=== PATIENT | male | born 1945 | race Asian ===

== ENCOUNTER 2024-08-21 12:14 | Emergency (ER) | payer MEDICARE, SELFPAY ==
[2024-08-21] VITALS (14 sets, daily range): BP systolic 97–139; BP diastolic 54–79; PULSE 84–104; RESP 18–97; TEMP 37.1–39.5; O2SAT 6–932; BMI 24.7
--- NOTE | 2024-08-21 | XR_ITS ---
MRI abdomen, without contrast. MRCP Date and time of exam: August 21, 2024 1746 hrs. Indications: Elevated liver function tests including total bilirubin on laboratory examination this week, abnormally thickened gallbladder wall and enlarged common bile duct on gallbladder sonogram today Technique: Multiple axial and coronal images of the abdomen have been obtained with the Siemens 1.5T MRI scanner. Images obtained included T1 weighted transverse images, T2-weighted transverse images, T2-weighted transverse images fat-suppressed, T2 weighted haste fat suppressed transverse images, T1 weighted images, in and out of phase images, T2-weighted coronal images, breath hold, T2 weighted haze coronal images as well as T2 weighted coronal thick slab images, MRCP. Findings: 8 cm liver cyst Gallbladder is contracted, gallbladder wall is thickened and edematous Common hepatic duct common bile duct enlarged 9 mm Abrupt termination of the distal common bile duct without definite common bile duct stones No definite peripancreatic edema Mild perinephric stranding Spleen is not enlarged Aorta normal size Impression: Acute acalculous cholecystitis Enlarged common hepatic common bile duct with fairly abrupt termination of the common bile duct, recommend ERCP follow-up to exclude malignant stricture in the distal common bile duct
--- NOTE | 2024-08-21 12:17 | XR_ITS ---
Examination: AP chest single view Technique one AP portable sitting chest single view Exam date and time: August 21, 2024 1251 hours INDICATIONS: Sepsis protocol FINDINGS: Early right middle lobe bibasilar pneumonia Mild enlargement cardiac contour Mild vascular congestion Prominent osteopenia IMPRESSION: Early right middle lobe and bibasilar pneumonia
--- NOTE | 2024-08-21 12:17 | EKG_ITS ---
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
--- NOTE | 2024-08-21 12:18 | PD.EDADULT ---
ED General RME/HPI General Chief complaint: Altered Mental Status Stated complaint: AMS Time Seen by Provider: 08/21/24 12:17 Arrival date/time: 08/21/24 12:14 CC: Altered mental status warm to touch EMS report tachycardic. Patient's family member report to EMS the patient complaining of abdominal pain and slept on the floor last night woke up this morning found him altered his baseline is normal mentation. Patient is awake answering yes/no questions stating he is complaining of abdominal pain. at bedside at 1258 states the patient been complaining of abdominal pain with vomiting x 1 yesterday afternoon, she states typically he is active energetic and awake. states that she let him sleep on the floor last night secondary to chronic back pain. Related Data Home Medications ?Medication ?Instructions ?Recorded ?Confirmed aspirin 81 mg tablet,delayed 81 mg PO BID 03/23/20 08/21/24 release (Ecotrin Low Strength) alprazolam 0.5 mg tablet 0.25 mg PO HS PRN Anxiety 10/31/22 08/21/24 tamsulosin 0.4 mg capsule 0.4 mg PO QDAY 10/31/22 08/21/24 amlodipine 5 mg tablet 5 mg PO DAILY 11/03/22 08/21/24 docusate sodium 250 mg capsule 250 mg PO BID 11/03/22 08/21/24 simvastatin 10 mg tablet 10 mg PO QPM 11/03/22 08/21/24 fluticasone fur. 200 mcg-umeclid 1 inh inhalation DAILY 08/21/24 08/21/24 62.5 mcg-vilant 25 mcg inhalat.powder (Trelegy Ellipta) montelukast 10 mg tablet 10 mg PO DAILY 08/21/24 08/21/24 Previous Rx's ?Medication ?Instructions ?Recorded tiotropium bromide 18 mcg capsule 1 cap inhalation QDAY 30 days #2 11/03/22 with inhalation device puffs Allergies Allergy/AdvReac Type Severity Reaction Status Date / Time No Known Allergies Allergy Verified 08/21/24 14:20 Review of Systems Review of Systems Narrative Review of Systems: GEN: No fever, no chills, no weight loss EYES: No discharge, no visual changes, no pain HEENT: No ear pain, no congestion, no sore throat PULM: No shortness of breath, no cough, no congestion CV: No chest pain, no dyspnea on exertion, no palpitations GI: No nausea, no vomiting, no diarrhea, + pain, no constipation : No frequency, no urgency, no dysuria MUSC/SKEL: No joint pain, no back pain SKIN: No rash PSYCH: No hallucinations, no depression HEME/LYMPH: No easy bleeding or bruising tendencies NEURO: No weakness, no headache ED Exam Narrative Physical exam: [General: Appears not in any acute distress Head normocephalic HEENT: Eyes pupils are PERRLA EOMs are intact mouth dry pink membranes swallow symmetrical phonation is normal. Nose no rhinorrhea although subsystems of HEENT are within acceptable limits Neck is supple nontender no JVD Chest equal chest rise nontender to palpation Respiratory: Clear to auscultation no wheezes crackles or rubs CV: Rate rhythm is regular no murmurs rubs or clicks Abdomen is distended secondary to body habitus soft, tender throughout, no masses positive bowel sounds all 4 quadrants Back: No CVA tenderness no spinous process tenderness from cervical spine thoracic and lumbar spine Skin: Intact no petechiae rash induration ulceration or crepitus Extremities: Moving all extremity against resistance cap refill less than 2 seconds neurosensory intact Neuro: Awake alert oriented x1, person and place, Glascow coma 13 no focal deficits] Course Course Course Narrative: Patient's case presented to [facility] perlita Mcnair, 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 Quality Measures VTE prophylaxis Orders Category Date Time Status Bedside COVID-19 Antigen Test NOW Care 08/21/24 12:17 Completed Bedside Influenza A&B Antigen Test NOW Care 08/21/24 12:18 Completed Refractory Tile Helper STAT Care 08/21/24 12:17 Completed Continuous Pulse Oximetry STAT Care 08/21/24 12:17 Completed EKG (ED ONLY) *Do not use* NOW Care 08/21/24 12:17 Completed In and Out Catheter X1PRN Care 08/21/24 12:17 Completed Insert IV NOW Care 08/21/24 12:17 Completed MRI Screening NOW Care 08/21/24 17:31 Completed NPO STAT Care 08/21/24 12:17 Completed Strict Intake and Output Routine Care 08/21/24 12:[address] abdomen pelvis wo con Stat Exams 08/21/24 12:58 Completed EKG (ED Only) Stat Exams 08/21/24 12:17 Draft MR MRCP Stat Exams 08/21/24 Completed US gall bladder Stat Exams 08/21/24 13:31 Completed XR chest 1V SEPSIS PROTOCOL Stat Exams 08/21/24 12:17 Completed B-Type Natriuretic Peptide Stat Lab 08/21/24 12:32 Completed Blood Culture (Lab) Stat Lab 08/21/24 12:25 Received CBC Stat Lab 08/21/24 12:32 Completed Comprehensive Metabolic Panel Stat Lab 08/21/24 12:32 Completed Creatine Kinase Stat Lab 08/21/24 12:32 Completed LDH (Lactate Dehydrogenase) Stat Lab 08/21/24 12:32 Completed Lactate (Lactic Acid) Stat Lab 08/21/24 12:32 Completed Lactic Acid, 3 HR Stat Lab 08/21/24 16:03 Completed Lipase Stat Lab 08/21/24 12:32 Completed Magnesium Stat Lab 08/21/24 12:32 Completed Partial Thromboplastin Time Stat Lab 08/21/24 12:32 Completed Phosphorous Stat Lab 08/21/24 12:32 Completed Procalcitonin Stat Lab 08/21/24 12:32 Completed Prothrombin Time with INR Stat Lab 08/21/24 12:32 Completed Troponin I Stat Lab 08/21/24 12:32 Completed Urinalysis Stat Lab 08/21/24 13:17 Completed Urine Culture Stat Lab 08/21/24 14:04 Ordered Acetaminophen Supp [Tylenol Supp] Med 08/21/24 12:21 Discontinued 650 mg OK X1 ONE Sodium Chloride 0.9% 1000 ml [Ns] 1,000 ml Med 08/21/24 16:48 Discontinued IV 125 mls/hr Sodium Chloride 0.9% 1000 ml [Ns] 1,000 ml Med 08/21/24 12:18 Discontinued IV 999 mls/hr Sodium Chloride 0.9% 1000 ml [Ns] 1,000 ml Med 08/21/24 13:23 Discontinued IV 999 mls/hr Sodium Chloride 0.9% 1000 ml [Ns] 1,000 ml Med 08/21/24 16:46 Discontinued IV 999 mls/hr Sodium Chloride 0.9% 1000 ml [Ns] 500 ml Med 08/21/24 16:48 Discontinued IV 999 mls/hr cefTRIAXone/D5w 1gm IV premix [Rocephin/D5w 1gm IV Med 08/21/24 13:22 Discontinued premix] 50 ml IV X1 metroNIDAZOLE/NS 500 MG IVPB [Flagyl 500 mg IV] Med 08/21/24 20:44 Discontinued 500 mg in 100 ml IV X1 Oxygen Delivery NOW RT 08/21/24 12:17 Completed Vital Signs Vital signs: Vital Signs Temperature 102.7 F H 08/21/24 12:22 Pulse Rate 104 H 08/21/24 12:22 Respiratory Rate 20 08/21/24 12:22 Blood Pressure 119/67 08/21/24 12:22 Pulse Oximetry (%) 92 L 08/21/24 12:22 Oxygen Delivery Method Room Air 08/21/24 12:[address] [facility] Patient data External records reviewed:: [facility] previous records and EMS form Clinical information provided by:: patient, EMS and spouse Social determinants that could affect healthcare access:: none Patient has the following chronic illnesses:: COPD acid reflux hypertension hyperlipidemia How is presenting disease/condition affected by chronic disease/condition?: uneffected by Evaluation data The following diagnostics were reviewed and interpreted by me:: lab results, radiology exam(s) and EKG tracing(s) Lab and/or radiology exams considered but not ordered:: EKG performed at 1349 shows a ventricular rate of 100 OK interval 155 QRS 101 QTc 340 sinus tachycardia left axis deviation. When compared to an old EKG of November 2022 there are no significant changes. CBC shows leukocytosis no anemia thrombocytopenia CMP shows the patient has a sodium 136 potassium 3.9 chloride of 100 CO2 of 2 5.9, BUN of 16 creatinine of 1.4 glucose of 132 Lactic of 3.2 Phos of 1.7, mag 1.5 T. bili of 4.9 AST of 349 ALT of 341 alk phos of 159 LDH of 435 BNP of 172 Troponin 0.023 Interpretation Summary: Acute cholangitis Medications Medications considered but not ordered:: None Medication administrations:: Medication Administration History Discontinued Medications Acetaminophen (Acetaminophen Supp 650 Mg Supp) 650 mg OK X1 ONE Stop: 08/21/24 12:22 Last Admin: 08/21/24 13:16 Dose: 650 mg Documented By: AM Sodium Chloride (Ns) 1,000 mls @ 999 mls/hr IV .Q1H1M ONE Stop: 08/21/24 13:18 Last Infusion: 08/21/24 15:01 Dose: Infused Documented By: Admin: 08/21/24 13:10 Dose: 999 mls/hr Documented By: AM Ceftriaxone Sodium/Dextrose (Rocephin/D5w 1gm Iv Premix) 50 mls @ 100 mls/hr IV X1 ONE Stop: 08/21/24 13:51 Last Infusion: 08/21/24 14:23 Dose: Infused Documented By: Admin: 08/21/24 13:45 Dose: 100 mls/hr Documented By: AM Sodium Chloride (Ns) 1,000 mls @ 999 mls/hr IV .Q1H1M ONE Stop: 08/21/24 14:23 Last Infusion: 08/21/24 15:01 Dose: Infused Documented By: Admin: 08/21/24 13:45 Dose: 999 mls/hr Documented By: AM Sodium Chloride (Ns) 1,000 mls @ 999 mls/hr IV .Q1H1M ONE Stop: 08/21/24 17:46 Sodium Chloride (Ns) 1,000 mls @ 125 mls/hr IV .Q8H LINDA Stop: 08/22/24 16:47 Last Admin: 08/21/24 16:50 Dose: 125 mls/hr Documented By: AM Sodium Chloride (Ns) 500 mls @ 999 mls/hr IV .Q31M ONE Stop: 08/21/24 17:18 Last Infusion: 08/21/24 17:21 Dose: Infused Documented By: Admin: 08/21/24 16:50 Dose: 999 mls/hr Documented By: AM Metronidazole (Flagyl 500 Mg Iv) 500 mg in 100 mls @ 100 mls/hr IV X1 ONE Stop: 08/21/24 21:43 Last Admin: 08/21/24 21:02 Dose: 100 mls/hr Documented By: None Consultations Consultation(s) initiated? (list below): No Diagnosis Differential Diagnosis ED Complaint MDM: Cholangitis cholelithiasis cholecystitis Most likely diagnosis given after review of the tests above:: Cholangitis Admission Indicated Admission indicated?: indicated Explain why admission is indicated or not indicated:: Transfer Admission Request Was there a request for admission?: No Disposition Plan Disposition Plan: Transfer Medical Decision Making Differential Diagnosis Differential Diagnosis: Cholangitis cholelithiasis cholecystitis Lab Data 08/21/24 12:32 11/26/24 12:32 Labs: Lab Results 08/21/24 08/21/24 08/21/24 Range/Units 12:32 13:17 16:03 WBC 13.3 H (3.8-10.6) Thou/mm3 RBC 5.10 (4.50-5.90) Miln/mm3 Hgb 15.8 (13.5-16.0) g/dL Hct 46.0 (41.0-53.0) % MCV 90 (80-100) fL MCH 31.0 (25.0-35.0) pg MCHC 34.3 (31.0-37.0) g/dl RDW Std Deviation 45.3 H (35.1-43.9) fL Plt Count 128 L (140-440) Thou/mm3 Neut % (Auto) 89 H (37-80) % Lymph % (Auto) 3 L (10-50) % [place] % (Auto) 4 (0-12) % Eos % (Auto) 0 (0-10) % Baso % (Auto) 0 (0-2.5) % Neut # (Auto) 11.9 H (1.8-7.7) Thou/mm3 Lymph # (Auto) 0.4 L (1.0-4.8) Thou/mm3 [place] # (Auto) 0.6 (0.0-0.8) Thou/mm3 Eos # (Auto) 0.0 (0.0-0.5) Thou/mm3 Baso # (Auto) 0.0 (0.0-0.2) Thou/mm3 Immature Gran # (Auto) 0.42 H (0.00-0.00) Thou/mm3 Absolute Nucleated RBC 0.02 H (0.00-0.00) Thou/mm3 Immature Gran % 3 H (0-0) % Nucleated RBC % 0 (0) /100 WBC PT 12.3 H (9.0-12.2) Seconds INR 1.1 (0.9-1.3) APTT 28.4 (22.0-36.0) Seconds Sodium 136 (136-145) mMol/L Potassium 3.9 (3.4-5.1) mMol/L Chloride 100 (98-107) mMol/L Carbon Dioxide 25.9 (20.0-31.0) mMol/L Anion Gap 10 (7-16) BUN 16 (9-23) mg/dL Creatinine 1.4 H (0.6-1.3) mg/dL Estim Creat Clear Calc 35.2 L (>60) mL/min eGFR 51 L (60 - ) See Note BUN/Creatinine Ratio 11 L (12-20) Ratio Glucose 132 H (74-106) mg/dL Calculated Osmolality 275 (275-295) Lactic Acid 3.2 H 2.0 (0.4-2.0) mMol/L Calcium 9.3 (8.3-10.6) mg/dL Corrected Calcium 9.3 (8.5-10.1) mg/dL Phosphorus 1.7 L (2.4-5.1) mg/dL Magnesium 1.5 L (1.6-2.6) mg/dL Total Bilirubin 4.9 H (0.3-1.2) mg/dL AST 349 H (0-34) U/L ALT 341 H (10-49) U/L Alkaline Phosphatase 159 H (46-116) U/L Lactate Dehydrogenase 435 H (120-246) U/L Total Creatine Kinase 83 (34-171) U/L Troponin I 0.023 (0.0-0.045) ng/mL B-Natriuretic Peptide 172 H (0-100) pg/mL Total Protein 7.0 (5.7-8.2) gm/dL Albumin 4.1 (3.4-4.8) gm/dL Globulin 2.9 (2.3-3.5) gm/dL Albumin/Globulin Ratio 1.4 (1.2-2.2) Lipase 26 (12-53) U/L Procalcitonin 45.32 H (0.0-0.49) ng/ml Ur Collection Type Clean Catch Urine Color Drk-Yellow A (Lt Yel-Yel) Urine Clarity Clear (Clear/Hazy) Urine pH 8.0 H (5.0-7.0) Ur Specific [place] 1.017 (1.001-1.035) Urine Protein 1+ A (Neg - Trace) Urine Glucose (UA) Negative (Negative) Urine Ketones Negative (Negative) Urine Blood 1+ A (Negative) Urine Nitrite Negative (Negative) Urine Bilirubin 1+ A (Negative) Urine Urobilinogen (Auto) 2.0 (0.0-1.0) mg/dL Ur Leukocyte Esterase Negative (Negative) Urine RBC 14 H (0-3) /hpf Urine WBC 7 H (0-5) /hpf Ur Squamous Epith Cells < 1 (0-5) /hpf Urine Bacteria None (None) Hyaline Casts < 1 (0-1) /hpf Discharge Plan Plan Patient Disposition: [facility] Facility Pt Being Transferred to: [facility] Service Needed for Transfer: Gastroenterology Patient condition on transfer: Stable Prescriptions/Referrals Prescriptions/Med Rec: No Action aspirin [Ecotrin Low Strength] 81 mg Tablet,Delayed Release (Dr/Ec) 81 mg PO BID alprazolam 0.5 mg tablet 0.25 mg PO HS PRN (Reason: Anxiety) Patient Comments: TAKE 1/2 TABLET BY MOUTH AT NIGHT NEEDED FOR SEVERE ANXIETY MAX DOSE ONE TABLET/DAILY. tamsulosin 0.4 mg capsule 0.4 mg PO QDAY Patient Comments: TAKE 1 CAPSULE BY ORAL ROUTE ONCE DAILY FOR ENLARGED PROSTATE tiotropium bromide 18 mcg capsule, w/inhalation device 1 cap inhalation QDAY 30 Days Qty: 2 1RF docusate sodium 250 mg capsule 250 mg PO BID Patient Comments: TAKE 1 CAPSULE BY MOUTH TWICE A DAY FOR SLOW TRANSIT CONSTIPATION simvastatin 10 mg Tablet 10 mg PO QPM amlodipine 5 mg Tablet 5 mg PO DAILY montelukast 10 mg tablet 10 mg PO DAILY Patient Comments: TAKE 1 TABLET (10 MG) BY ORAL ROUTE ONCE DAILY IN THE EVENING FOR ASTHMA/PERSISTENT ALLERGIES Trelegy Ellipta 200-62.5-25 mcg blister with device 1 inh INHALATION DAILY Patient Comments: PLEASE SEE ATTACHED FOR DETAILED DIRECTIONS Referrals: Javier Pete MD [Primary Care Provider] - In 1 week Problem List Clinical Impression: Acute cholangitis Patient/Caregiver Discharge Instructions Print Language: [place] Stand Alone Forms: Angelia Award Info., Patient Portal Info Letter PA/COLLEGE TUTOR Supervising Physician PA/COLLEGE TUTOR Supervising Physician: Mike Cr ENP
[2024-08-21 12:43] LABS: Lactate (Lactic Acid) 3.2 mMol/L (0.4-2.0)
[2024-08-21 12:45] LABS: Basophils % (Auto) 0 % (0-2.5); Eosinophils % (Auto) 0 % (0-10); Hemoglobin 15.8 g/dL (13.5-16.0); Immature Granulocytes % (Auto) 3 % (0-0); Immature Granulocytes Auto 0.42 Thou/mm3 (0.00-0.00); Lymphocytes # (Auto) 0.4 Thou/mm3 (1.0-4.8); Lymphocytes % (Auto) 3 % (10-50); Mean Corpuscular HGB Conc 34.3 g/dl (31.0-37.0); Mean Corpuscular Volume 90 fL (80-100); Monocytes # (Auto) 0.6 Thou/mm3 (0.0-0.8); Monocytes % (Auto) 4 % (0-12); Neutrophils # (Auto) 11.9 Thou/mm3 (1.8-7.7); Neutrophils % (Auto) 89 % (37-80); Nucleated Red Blood Cell # 0.02 Thou/mm3 (0.00-0.00); Nucleated Red Blood Cell % 0 /100 WBC (0); Platelet Count 128 Thou/mm3 (140-440); RDW Standard Deviation 45.3 fL (35.1-43.9); White Blood Count 13.3 Thou/mm3 (3.8-10.6)
--- NOTE | 2024-08-21 12:58 | XR_ITS ---
Examination: CT abdomen and pelvis without contrast. Coronal 3-D reconstructions. Sagittal 2-D reconstructions. Date and time of exam:August 21, 2024 at 1319 hours Comparison October 31, 2022 INDICATIONS: Generalized abdominal pain and fevers today CTDI: vol (mGy): 9.26 DLP: (mGycm): 565 Technique: Axial images of the abdomen have been obtained, 3 mm slice thickness Intravenous contrast material has not been administered. Low dose protocols were performed. One or more of the following dose reduction techniques were used; automated exposure control, adjustment of the mA and/or KV according to patient size, use of iterative reconstruction technique. Findings: Again noted large right lobe liver cyst No biliary tract dilatation Gallbladder wall appears thickened Spleen is not enlarged No pancreatic mass No hydronephrosis or ureteral calculi Aorta normal size No pericecal inflammatory change 25 mm fat-containing umbilical hernia Minute calcification along the urinary bladder on the right side image 178 AP prostate dimension 3.7 cm Fat-containing inguinal hernias Moderate osteopenia Minimal urinary bladder wall thickening anteriorly up to 3 mm IMPRESSION: Recommend hepatobiliary sonography to exclude acute cholecystitis 25 mm fat-containing umbilical hernia No abdominal or pelvic abscess Minimal urinary bladder wall thickening, consider cystitis
[2024-08-21] MEDS: SODIUM CHLORIDE 0.9% 1000 ML 1,000 ML 999 ML IV ×2 (13:10→13:45)
[2024-08-21 13:14] LABS: B-Type Natriuretic Peptide 172 pg/mL (0-100)
[2024-08-21] MEDS: ACETAMINOPHEN SUPP 650 MG SUPP PR (13:16)
[2024-08-21 13:23] LABS: Alanine Aminotransferase 341 U/L (10-49); Albumin, Serum 4.1 gm/dL (3.4-4.8); Albumin/Globulin Ratio 1.4 (1.2-2.2); Alkaline Phosphatase 159 U/L (46-116); Anion Gap 10 (7-16); Aspartate Amino Transferase 349 U/L (0-34); BUN/Creatinine Ratio 11 Ratio (12-20); Bilirubin,Total 4.9 mg/dL (0.3-1.2); Blood Urea Nitrogen 16 mg/dL (9-23); Calcium 9.3 mg/dL (8.3-10.6); Calcium (Corrected) 9.3 mg/dL (8.5-10.1); Carbon Dioxide 25.9 mMol/L (20.0-31.0); Chloride 100 mMol/L (98-107); Creatine Kinase 83 U/L (34-171); Creatinine (Component) 1.4 mg/dL (0.6-1.3); Estimated Creatinine Clearance 35.2 mL/min (>60); Globulin 2.9 gm/dL (2.3-3.5); Glucose 132 mg/dL (74-106); LDH (Lactate Dehydrogenase) 435 U/L (120-246); Lipase 26 U/L (12-53); Magnesium 1.5 mg/dL (1.6-2.6); Osmolality,Calculated 275 (275-295); Phosphorous 1.7 mg/dL (2.4-5.1); Potassium 3.9 mMol/L (3.4-5.1); Procalcitonin 45.32 ng/ml (0.0-0.49); Sodium 136 mMol/L (136-145); Troponin I 0.023 ng/mL (0.0-0.045); eGFR 51 See Note
--- NOTE | 2024-08-21 13:31 | XR_ITS ---
Examination: Abdomen sonogram, Limited Date and time of exam: August 21, 2024 1520 hours INDICATIONS: Elevated liver function tests on laboratory examination today, CT abdomen study today thickened gallbladder wall Technique: Real-time martinez scale transabdominal sonographic images of the upper abdomen obtained. Findings: Negative for gallstones Gallbladder wall is thickened 0.8 cm Common bile duct 0.9 cm Pancreatic head 3.0 cm Liver 16.6 cm with 8 cm right lobe liver cyst Normal hepatopedal portal venous flow Patent IVC IMPRESSION: Findings most consistent with acute cholecystitis, consider HIDA scan or MRCP follow-up for confirmation
[2024-08-21 13:35] LABS: Collection Type, Urine Clean Catch
[2024-08-21 13:40] LABS: Bilirubin,Urine 1+ (Negative); Blood,Urine 1+ (Negative); Clarity,Urine Clear (Clear/Hazy); Color,Urine Drk-Yellow (Lt Yel-Yel); Glucose, Urine Negative (Negative); Hyaline Casts,Urine < 1 /hpf (0-1); Ketones,Urine Negative (Negative); Leukocyte Esterase,Urine Negative (Negative); Nitrite,Urine Negative (Negative); Protein,Urine 1+ (Neg - Trace); RBC,Urine 14 /hpf (0-3); Specific Gravity,Urine 1.017 (1.001-1.035); Squamous Epithelial Cell,Urine < 1 /hpf (0-5); WBC,Urine 7 /hpf (0-5)
[2024-08-21] MEDS: cefTRIAXone/D5w 1gm IV premix 50 ML IV (13:45)
[2024-08-21 13:47] LABS: INR 1.1 (0.9-1.3); Partial Thromboplastin Time 28.4 Seconds (22.0-36.0); Prothrombin Time 12.3 Seconds (9.0-12.2)
[2024-08-21 15:38] LABS: Reflex Lactate? Y
[2024-08-21] MEDS: SODIUM CHLORIDE 0.9% 1000 ML 1,000 ML 125 ML IV (16:50)
[2024-08-21] MEDS: SODIUM CHLORIDE 0.9% 1000 ML 500 ML 999 ML IV (16:50)
--- NOTE | 2024-08-21 18:04 | PC.NURSE ---
Pt off to MRI
--- NOTE | 2024-08-21 20:38 | PC.NURSE ---
2037 tang rodas speaking with [facility] doctor at this time.
--- NOTE | 2024-08-21 20:43 | PC.NURSE ---
PT IS ACCEPTED TO [facility] BY DR. BARBER. THIS IS A ER:ER TRANSFER AND NUMBER FOR REPORT IS [phone].
[2024-08-21] MEDS: metroNIDAZOLE/NS 500 MG IVPB 500 MG/100 ML BAG 100 MG IV (21:02)
== END 2024-08-21 22:05 | disposition short-term general hospital (02) ==
PROVIDERS: Registered Nurse General Practice; Emergency Provider Emergency Medicine; PCP Family Medicine
DX: K83.09 Other cholangitis (principal); R00.0 Tachycardia, unspecified; I10 Essential (primary) hypertension; R79.89 Other specified abnormal findings of blood chemistry
CPT/HCPCS: 36415; 71045; 74176; 76705; 80053; 81001; 82550; 83605; 83615; 83690; 83735; 83880; 84100; 84145; 84484; 85025; 85610; 85730; 87040; 87077; 87086; 87186; 87400; 87811; 96360; 96361; 96365; 99285; J0696; J3490; J7030; S8037; 74181; A9270; J1836

== ENCOUNTER → 2024-09-03 | Outpatient (CLI) | payer MEDICARE, SELFPAY ==
--- NOTE | 2024-09-03 | XR_ITS ---
Examination: Abdomen AP single view Technique: AP portable supine abdomen, single view Exam date and time: September 03, 2024 0904 hours INDICATIONS: Status post placement scan one month ago, right upper abdominal pain one month FINDINGS: 2 biliary stents noted satisfactory position Nonobstructive bowel gas pattern No free air Moderate air and stool throughout the colon IMPRESSION: Biliary stents satisfactory position
== END | disposition home or self-care (01) ==
PROVIDERS: Referring Provider Family Medicine; Visit Provider Family Medicine
DX: K83.09 Other cholangitis (principal)
CPT/HCPCS: 74018

== ENCOUNTER 2024-10-20 01:47 | Emergency (ER) | payer MEDICARE, SELFPAY ==
[2024-10-20] VITALS (8 sets, daily range): BP systolic 103–139; BP diastolic 65–91; PULSE 79–103; RESP 16–25; TEMP 36.4–37; O2SAT 81–97
[2024-10-20] MEDS: ALBUTEROL/IPRATROPIUM (Duoneb) RT SOL 3 ML NEBU INH (02:56)
--- NOTE | 2024-10-20 03:23 | PD.EDRME ---
Rapid Medical Screening Exam RME Arrival date/time: 10/20/24 01:47 Chief Complaint: Neuro Symptoms/Deficit Time Seen by Provider: 10/20/24 03:23 Vital signs: Vital Signs Temperature 97.5 F 10/20/24 02:03 Pulse Rate 92 10/20/24 02:03 Respiratory Rate 18 10/20/24 02:03 Blood Pressure 118/65 10/20/24 02:03 Pulse Oximetry (%) 81 L 10/20/24 02:03 Oxygen Delivery Method Room Air 10/20/24 02:03 Vital signs reviewed by provider: Yes RME Narrative: 79-year-old male with history of COPD coming in syncope. states the patient passed out on the bed at home.
--- NOTE | 2024-10-20 04:20 | EKG_ITS ---
[facility] Test Date: 2024-10-20 Pat Name: GOLD ZAMUDIO Department: Room: - Gender: Male Pathologist: : 1945 Requested By: Chrissy Mckeon Order Number: [id number] Reading MD: Chrissy Mckeon Measurements Intervals [place] Rate: 85 P: 29 NE: 181 QRS: -26 QRSD: 105 T: 35 QT: 394 QTc: 470 Interpretive Statements SINUS RHYTHM BORDERLINE LEFT AXIS DEVIATION [QRS AXIS < -20] NONSPECIFIC ST & T-WAVE ABNORMALITY Compared to ECG 08/21/2024 13:49:35 Sinus tachycardia no longer present T-wave abnormality still present /store/S0/[id number]
--- NOTE | 2024-10-20 04:21 | XR_ITS ---
Examination: AP chest single view TECHNIQUE: AP portable supine chest single view Exam date: October 20, 2024 at 0438 hours Comparison August 21, 2024 INDICATIONS: Sepsis today. FINDINGS: Mild prominence left ventricle Moderate vascular congestion Prominent right hilum on this study Mild bibasilar pneumonia Moderate osteopenia IMPRESSION: Moderate vascular congestion Enlarged right hilum, consider CT chest post contrast follow-up Mild bibasilar pneumonia
[2024-10-20 05:01] LABS: Lactate (Lactic Acid) 1.4 mMol/L (0.4-2.0)
[2024-10-20 05:03] LABS: Basophils % (Auto) 0 % (0-2.5); Eosinophils # (Auto) 0.1 Thou/mm3 (0.0-0.5); Eosinophils % (Auto) 1 % (0-10); Hematocrit 43.3 % (41.0-53.0); Hemoglobin 14.7 g/dL (13.5-16.0); Immature Granulocytes % (Auto) 0 % (0-0); Immature Granulocytes Auto 0.03 Thou/mm3 (0.00-0.00); Lymphocytes # (Auto) 0.9 Thou/mm3 (1.0-4.8); Lymphocytes % (Auto) 11 % (10-50); Mean Corpuscular HGB Conc 33.9 g/dl (31.0-37.0); Mean Corpuscular Hemoglobin 30.4 pg (25.0-35.0); Mean Corpuscular Volume 90 fL (80-100); Monocytes # (Auto) 0.6 Thou/mm3 (0.0-0.8); Monocytes % (Auto) 7 % (0-12); Neutrophils # (Auto) 6.9 Thou/mm3 (1.8-7.7); Neutrophils % (Auto) 81 % (37-80); Nucleated Red Blood Cell % 0 /100 WBC (0); Platelet Count 233 Thou/mm3 (140-440); Red Blood Count 4.84 Miln/mm3 (4.50-5.90); White Blood Count 8.5 Thou/mm3 (3.8-10.6)
[2024-10-20] MEDS: MethylPREDNISolone SOD SUCC 62.5 MG/ML 2ML VIAL 125 MG IVP (05:09)
[2024-10-20 05:19] LABS: B-Type Natriuretic Peptide 33 pg/mL (0-100)
[2024-10-20 05:29] LABS: Alanine Aminotransferase 18 U/L (10-49); Albumin/Globulin Ratio 1.5 (1.2-2.2); Alkaline Phosphatase 89 U/L (46-116); Anion Gap 7 (7-16); Aspartate Amino Transferase 17 U/L (0-34); BUN/Creatinine Ratio 15 Ratio (12-20); Bilirubin,Total 0.7 mg/dL (0.3-1.2); Blood Urea Nitrogen 17 mg/dL (9-23); Calcium 9.1 mg/dL (8.3-10.6); Calcium (Corrected) 9.1 mg/dL (8.5-10.1); Carbon Dioxide 31.7 mMol/L (20.0-31.0); Chloride 101 mMol/L (98-107); Creatinine (Component) 1.1 mg/dL (0.6-1.3); Globulin 2.6 gm/dL (2.3-3.5); Glucose 138 mg/dL (74-106); Magnesium 2.1 mg/dL (1.6-2.6); Osmolality,Calculated 282 (275-295); Potassium 3.5 mMol/L (3.4-5.1); Procalcitonin 0.12 ng/ml (0.0-0.49); Sodium 140 mMol/L (136-145); Total Protein 6.6 gm/dL (5.7-8.2); Troponin I < 0.020 ng/mL (0.0-0.045); eGFR > 60 See Note
--- NOTE | 2024-10-20 05:51 | EDNOTE_ITS ---
ED General RME/HPI General Chief complaint: Neuro Symptoms/Deficit Stated complaint: near syncope Time Seen by Provider: 10/20/24 03:23 Arrival date/time: 10/20/24 01:47 RME / HPI RME / HPI narrative: 79-year-old male with history of COPD coming in syncope. states the patient passed out on the bed at home. The previous history is from the initial RME note when I went in the room the patient is alert awake he is feeling comfortable has no complaints evidently just completed nebulizer treatment. Denies any shortness of breath on the time of my initial evaluation. Patient and both state they are both anxious as he was just here in the hospital. Patient does have COPD. He also has a new rash in the last 2 weeks which has been quite itchy. Patient got 1 nebulizer treatment prior to my evaluation and a dose of steroids. The rashes on the back on the right lower area and anterior abdomen is macular papular and scattered there is no involvement of the face and the lower extremities have some hyperpigmentary changes but no rash on the lower extremities at this time Related Data Home Medications ?Medication ?Instructions ?Recorded ?Confirmed aspirin 81 mg tablet,delayed 81 mg PO BID 03/23/20 08/21/24 release (Ecotrin Low Strength) alprazolam 0.5 mg tablet 0.25 mg PO HS PRN Anxiety 10/31/22 08/21/24 tamsulosin 0.4 mg capsule 0.4 mg PO QDAY 10/31/22 08/21/24 amlodipine 5 mg tablet 5 mg PO DAILY 11/03/22 08/21/24 docusate sodium 250 mg capsule 250 mg PO BID 11/03/22 08/21/24 simvastatin 10 mg tablet 10 mg PO QPM 11/03/22 08/21/24 fluticasone fur. 200 mcg-umeclid 1 inh inhalation DAILY 08/21/24 08/21/24 62.5 mcg-vilant 25 mcg inhalat.powder (Trelegy Ellipta) montelukast 10 mg tablet 10 mg PO DAILY 08/21/24 08/21/24 Previous Rx's ?Medication ?Instructions ?Recorded tiotropium bromide 18 mcg capsule 1 cap inhalation QDAY 30 days #2 11/03/22 with inhalation device puffs Allergies Allergy/AdvReac Type Severity Reaction Status Date / Time No Known Allergies Allergy Verified 08/21/24 14:20 Review of Systems Review of Systems Narrative Review of Systems: Review of Systems: Constitutional: and patient both are poor historians and give contradictory responses to some questions. DENIES: Fevers,; Eyes: DENIES: Loss of vision, Head/Ear/Nose: DENIES: Loss of hearing. Throat: Denies dysphagia. Cardiovascular: Denies chest pain, patient denies any shortness of breath while I am evaluating him. Respiratory: See HPI, Gastrointestinal: DENIES: Rectal bleeding or melena. Genitourinary: DENIES: Dysuria (painful or difficult urination),; Musculoskeletal: DENIES: Arthralgia (pain in a joint),; Skin: DENIES: Rash,; Neurological: DENIES: loss of function or movement,; Psychiatric: DENIES: recent major life stressor, emotional problem, illicit drug use or abuse,; Endocrinology: DENIES: Weight change,; Hematologic/Lymphatic: DENIES: Abnormal bruising. Allergic/Immunologic: See HPI as rash on abdomen and back Past Medical History Past Medical History NEUROLOGIC: Negative Seizures CARDIAC: Positive Hypercholesterolemia and Hypertension; Negative Cardiac Disorders or Congestive Heart Failure RESPIRATORY: Positive Chronic Obstructive Pulmonary Disease (COPD) and Asthma GENITOURINARY: Negative Renal Disease ENDOCRINE: Negative Diabetes Mellitus Type 1 or Diabetes Mellitus Type 2 HEMATOLOGIC: Negative Sickle Cell Disease PSYCHO/SOCIAL: Positive Anxiety OTHER HISTORY: Positive Blood Transfusions; Negative Blood Transfusion Reaction or Anesthesia Reactions (Has not undergone anesthesia) Social History SMOKING STATUS: Never smoker SUBSTANCE USE: does not use ED Exam Narrative Physical exam: Physical Exam: General: The vital signs were reviewed. The patient is non-toxic, in no apparent distress and appears healthy with a patent airway, no respiratory distress and has no apparent circulatory problems. Head & Scalp: Normocephalic, atraumatic. Face: Appears normal and is without lesions, deformity. Ears: Left external pinna appears normal. Right external pinna appears normal. Eyes: The sclera is anicteric. No obvious photophobia. The Left and Right Orbit/Lid/Conjunctiva appears normal without swelling, discoloration or injection. Nose: The nose is without deformity, discharge or tenderness; Throat: Appears normal. The mucous membranes are pink and moist without exudates, redness or mass seen. The tongue appears normal. Neck: The neck is supple and no apparent mass or adenopathy. Chest: The patient's lungs are perfectly clear on my evaluation note this is after 1 unit dose of albuterol. The chest wall is normal in size and symmetry and has no chest wall tenderness or crepitus. The patient displays normal ventilator effort without retractions, accessory muscle use and has adequate air movement bilaterally with no wheezes and no rales. Cardiovascular: Regular rate and rhythm; No murmurs, rubs, or gallops; Gastrointestinal: The abdomen appears normal. No obvious hernias or mass. The abdomen is soft and benign, non-distended, with no pain, no guarding and no rebound tenderness. Bowel sounds are present and normal sounding. No CVA tenderness. Genitourinary: Back/Spine: Normal inspection Extremities/Musculoskeletal/lymphatic: The bilateral upper and lower extremities are warm. There is no evidence of arterial insufficiency. There is no evidence of venous insufficiency/edema. The patient spontaneously moves bilateral upper and lower extremities with no pain and no limitation of movement. There is no apparent, injury or trauma. Skin: There is a macular papular rash scattered across the anterior abdomen bilaterally and some involving some of the right lumbar iliolumbar area. There is no petechia or purpura. Lower extremities are spared although some hyperpigmentary changes to his bilateral lower extremities which are old and chronic for the . The skin is warm, dry and intact. No rashes. No petechia. No purpura. No abnormal bruising. The color is appropriate with no cyanosis. Mental status/Psychiatric: Mental status is appropriate for age. Patient spontaneously reports he is got anxiety issues and the confirms that. The patient has no apparent delusions, visual hallucinations, no apparent audible hallucinations. The patient has no apparent suicidal thoughts/ideation and no apparent homicidal thoughts/ideation. Neurological: The patient is awake, alert, interactive, cordial, cooperative and is oriented to name and situation. The patient follows commands and answers historical question with no impairment. There is no visual disturbance apparent. The pupils are equal and reactive bilaterally with normal eye movements and no diplopia The bilateral upper and lower extremities have normal strength, normal range of motion and normal functioning. The gait, station and balance appear to be baseline with no acute change Course Quality Measures none Orders Category Date Time Status EKG (ED ONLY) *Do not use* NOW Care 10/20/24 04:20 Completed EKG (ED Only) Stat Exams 10/20/24 04:20 Draft XR chest 1V SEPSIS PROTOCOL Stat Exams 10/20/24 04:21 Completed BNP [B-Type Natriuretic Peptide] Stat Lab 10/20/24 04:40 Completed Blood Culture (Lab) Stat Lab 10/20/24 04:35 Received CBC Stat Lab 10/20/24 04:40 Completed CMP [Comprehensive Metabolic Panel] Stat Lab 10/20/24 04:40 Completed Lactic Acid [Lactate (Lactic Acid)] Stat Lab 10/20/24 04:40 Completed Mag [Magnesium] Stat Lab 10/20/24 04:40 Completed Procalcitonin Stat Lab 10/20/24 04:40 Completed Troponin I Stat Lab 10/20/24 04:40 Completed Urinalysis Stat Lab 10/20/24 08:18 Ordered Albuterol/Ipratr Rt Perla [Duoneb Rt Perla] Med 10/20/24 02:51 Discontinued 3 ml INH X1 ONE MethylPREDNISolone.* [SoluMEDROL Inj] Med 10/20/24 04:30 Discontinued 125 mg IVP X1 ONE Oxygen Delivery NOW RT 10/20/24 03:06 Active Vital Signs Vital signs: Vital Signs Temperature 97.5 F 10/20/24 02:03 Pulse Rate 92 10/20/24 02:03 Respiratory Rate 18 10/20/24 02:03 Blood Pressure 118/65 10/20/24 02:03 Pulse Oximetry (%) 81 L 10/20/24 02:03 Oxygen Delivery Method Room Air 10/20/24 02:03 [facility] Patient data External records reviewed:: [facility] previous records Clinical information provided by:: patient and spouse Social determinants that could affect healthcare access:: none Patient has the following chronic illnesses:: COPD some abdominal mass being worked up at [facility] of uncertain etiology or details How is presenting disease/condition affected by chronic disease/condition?: c aused by (COPD, BPH) Evaluation data The following diagnostics were reviewed and interpreted by me:: EKG tracing(s) (Twelve-lead EKG interpreted by myself reveals motion artifact with a sinus rhythm rate [address] elevation CA.) Lab and/or radiology exams considered but not ordered:: CT scan considered but patient is got ongoing workup for abdominal mass at another facility and his follow-up plans. Interpretation Summary: Probably anxiety reaction as the shortness of breath seems to resolved with no recurrence while here. Medications Medications considered but not ordered:: Antihistamine but 1 avoid the BPH Medication administrations:: Medication Administration History Discontinued Medications Albuterol/Ipratropium (Albuterol/Ipratropium (Duoneb) Rt Perla 3 Ml Nebu) 3 ml INH X1 ONE Stop: 10/20/24 02:52 Last Admin: 10/20/24 02:56 Dose: 3 ml Documented By: NE Methylprednisolone Sodium Succinate (Methylprednisolone Sod Succ 62.5 Mg/Ml 2ml Vial) 125 mg IVP X1 ONE Stop: 10/20/24 04:31 Last Admin: 10/20/24 05:09 Dose: 125 mg Documented By: AM As above Consultations Consultation(s) initiated? (list below): No Diagnosis Differential Diagnosis ED Complaint MDM: Anxiety attack syncopal event drug reaction Most likely diagnosis given after review of the tests above:: Maculopapular rash Arrhythmias Admission Indicated Admission indicated?: not indicated Explain why admission is indicated or not indicated:: Patient has no symptoms is ambulatory hungry and no apparent acute. Most likely this is mostly all anxiety reaction Admission Request Was there a request for admission?: No Disposition Plan Disposition Plan: Discharge Discharge Attestation Discharge Attestation: The patient and all family members were given an opportunity to ask questions and understood the discharge instructions. Discharge instructions specifically effects, indications for sooner follow up or return to the emergency department, and the expected course of current diagnosis. Patient condition: Stable Medical Decision Making MDM Narrative MDM Narrative: Patient is an 79-year-old who comes in with a possible syncopal event possible shortness of breath who denies have any symptoms now after breathing treatment. And lungs are actually clear his O2 sats in the mid 90s on room air. He is able to lay flat and has no obvious distress. Both the and the patient brought up possible anxiety issues as the source of this visit referring to the recent hospitalization and reporting that he is got COPD and some abdominal mass workup is ongoing. This workup was done evidently Hussain as the paperwork suggests. CBC with a white count 8.5 hemoglobin of 14.7 sodium 140 potassium 3.5 chloride 101 CO2 is almost 32 BUN 17 creatinine 1.1 glucose 138 lactic acid 1.4 magnesium 2.1 AST ALT and total bilirubin are within normal limits. Troponin is negative BNP is 33 procalcitonin is 0.12 which is normal. Twelve-lead EKG was done which reveals a sinus rhythm rate 85 but there is no ST elevation CA. There is probably LVH by voltage criteria involving the precordial leads . Chest x-ray portable interpreted by myself reveals heart slightly enlarged there are some right perihilar fullness of uncertain etiology there is no obvious effusion.and there is increased bilateral vascular redistribution. Clinically the patient does not appear to be ill has an unexplained rash but medical records from [facility] shows he is got BPH and therefore put him on an antihistamine might cause urinary retention so avoid this at this time. Patient is ambulatory without assistance actually he walked around the department with a smile no shortness of breath no symptoms I have attempted to understand what actually happened at the house and the best I can reconstruct is that the patient was sitting on the edge of the bed scratching himself from his rash and then he laid back but the thought he might of passed out so he blew into his mouth which he immediately woke up but because of the anxiety from previous health issues but because of previous history and the anxiety associated with this and past events they called an ambulance to bring the patient here. Patient has been observed from the time of my shift and patient is hungry smiling wants to go home white count 8.5 hemoglobin 14.7 sodium 140 potassium 3.5 BUN 17 creatinine 1.1 glucose 138 lactic acid 1.4 AST ALT are normal total bilirubin 0.7 BNP troponin are both negative. Procalcitonin is negative. Patient was given advisements and precautions. Also the son was called by the family so I could speak with him and the family was unable to locate him as of 1033 hrs so I discharged the patient and told the patient to have him call the ER if they have any question. At 1052 the son Isaiah called back as were discharging the patient and I ran down the rodas case with him and told him to follow-up with his doctor as it does not appear he had a true syncopal event although he did report there was some dizziness. There is been no dizziness here. Also informed the chest x-ray has questionable right perihilar infiltrate or fullness and that they should follow- up with her doctor especially if he has a fever or coughing or getting worse next to 3 days she should return to get reevaluated. Differential Diagnosis Differential Diagnosis: Anxiety attack syncopal event drug reaction Lab Data 10/20/24 04:40 10/20/24 04:40 Labs: Lab Results 10/20/24 Range/Units 04:40 WBC 8.5 (3.8-10.6) Thou/mm3 RBC 4.84 (4.50-5.90) Miln/mm3 Hgb 14.7 (13.5-16.0) g/dL Hct 43.3 (41.0-53.0) % MCV 90 (80-100) fL MCH 30.4 (25.0-35.0) pg MCHC 33.9 (31.0-37.0) g/dl RDW Std Deviation 44.0 H (35.1-43.9) fL Plt Count 233 (140-440) Thou/mm3 Neut % (Auto) 81 H (37-80) % Lymph % (Auto) 11 (10-50) % [place] % (Auto) 7 (0-12) % Eos % (Auto) 1 (0-10) % Baso % (Auto) 0 (0-2.5) % Neut # (Auto) 6.9 (1.8-7.7) Thou/mm3 Lymph # (Auto) 0.9 L (1.0-4.8) Thou/mm3 [place] # (Auto) 0.6 (0.0-0.8) Thou/mm3 Eos # (Auto) 0.1 (0.0-0.5) Thou/mm3 Baso # (Auto) 0.0 (0.0-0.2) Thou/mm3 Immature Gran # (Auto) 0.03 H (0.00-0.00) Thou/mm3 Absolute Nucleated RBC 0.00 (0.00-0.00) Thou/mm3 Immature Gran % 0 (0-0) % Nucleated RBC % 0 (0) /100 WBC Sodium 140 (136-145) mMol/L Potassium 3.5 (3.4-5.1) mMol/L Chloride 101 (98-107) mMol/L Carbon Dioxide 31.7 H (20.0-31.0) mMol/L Anion Gap 7 (7-16) BUN 17 (9-23) mg/dL Creatinine 1.1 (0.6-1.3) mg/dL Estim Creat Clear Calc Not Performed. eGFR > 60 (60 - ) See Note BUN/Creatinine Ratio 15 (12-20) Ratio Glucose 138 H (74-106) mg/dL Calculated Osmolality 282 (275-295) Lactic Acid 1.4 (0.4-2.0) mMol/L Calcium 9.1 (8.3-10.6) mg/dL Corrected Calcium 9.1 (8.5-10.1) mg/dL Magnesium 2.1 (1.6-2.6) mg/dL Total Bilirubin 0.7 (0.3-1.2) mg/dL AST 17 (0-34) U/L ALT 18 (10-49) U/L Alkaline Phosphatase 89 (46-116) U/L Troponin I < 0.020 (0.0-0.045) ng/mL B-Natriuretic Peptide 33 (0-100) pg/mL Total Protein 6.6 (5.7-8.2) gm/dL Albumin 4.0 (3.4-4.8) gm/dL Globulin 2.6 (2.3-3.5) gm/dL Albumin/Globulin Ratio 1.5 (1.2-2.2) Procalcitonin 0.12 (0.0-0.49) ng/ml Discharge Plan Plan Patient Disposition: HOME (Self Care) Prescriptions/Referrals Prescriptions/Med Rec: No Action aspirin [Ecotrin Low Strength] 81 mg Tablet,Delayed Release (Dr/Ec) 81 mg PO BID alprazolam 0.5 mg tablet 0.25 mg PO HS PRN (Reason: Anxiety) Patient Comments: TAKE 1/2 TABLET BY MOUTH AT NIGHT NEEDED FOR SEVERE ANXIETY MAX DOSE ONE TABLET/DAILY. tamsulosin 0.4 mg capsule 0.4 mg PO QDAY Patient Comments: TAKE 1 CAPSULE BY ORAL ROUTE ONCE DAILY FOR ENLARGED PROSTATE tiotropium bromide 18 mcg capsule, w/inhalation device 1 cap inhalation QDAY 30 Days Qty: 2 1RF docusate sodium 250 mg capsule 250 mg PO BID Patient Comments: TAKE 1 CAPSULE BY MOUTH TWICE A DAY FOR SLOW TRANSIT CONSTIPATION simvastatin 10 mg Tablet 10 mg PO QPM amlodipine 5 mg Tablet 5 mg PO DAILY montelukast 10 mg tablet 10 mg PO DAILY Patient Comments: TAKE 1 TABLET (10 MG) BY ORAL ROUTE ONCE DAILY IN THE EVENING FOR ASTHMA/PERSISTENT ALLERGIES Trelegy Ellipta 200-62.5-25 mcg blister with device 1 inh INHALATION DAILY Patient Comments: PLEASE SEE ATTACHED FOR DETAILED DIRECTIONS Referrals: Javier Pete MD [Primary Care Provider] - In 1 week Problem List Clinical Impression: Syncope, Anxiety, Maculopapular rash, COPD (chronic obstructive pulmonary disease), History of BPH, Abdominal mass Patient/Caregiver Discharge Instructions Additional Instructions: See your primary care doctor this week as we discussed to address the rash and itching. Note because of your BPH or prostate problems antihistamines might cause urinary retention so we will continue with the steroid that they gave you earlier for 3 days. It does not sound like you actually had a syncopal event today or passing out as you woke up immediately. If you are passing out losing consciousness or getting worse please return for reevaluation. If you experience worsening shortness of breath please return as your lungs were clear on my evaluation and I do not suspect that you have any ongoing COPD exacerbation Print Language: Brazilian Stand Alone Forms: [facility] Award Info., Patient Portal Info Letter
--- NOTE | 2024-10-20 08:49 | PC.NURSE ---
Patient ambulated about 50ft without any difficulty. Normotensive upon return to bed and O2 sats 94% on room air.
== END 2024-10-20 11:24 | disposition home or self-care (01) ==
PROVIDERS: Emergency Medicine; Emergency Provider Emergency Medicine; PCP Family Medicine
DX: R55 Syncope and collapse (principal); F41.9 Anxiety disorder, unspecified; R21 Rash and other nonspecific skin eruption; N40.0 Benign prostatic hyperplasia without lower urinary tract symptoms; J44.9 Chronic obstructive pulmonary disease, unspecified
CPT/HCPCS: 36415; 71045; 80053; 81001; 83605; 83735; 83880; 84145; 84484; 85025; 87040; 93005; 94640; 96374; 99284; A9270; J2919

== ENCOUNTER → 2024-11-06 | Outpatient (CLI) | payer MEDICARE, SELFPAY ==
[2024-11-06 10:34] LABS: Basophils % (Auto) 1 % (0-2.5); Eosinophils # (Auto) 0.7 Thou/mm3 (0.0-0.5); Eosinophils % (Auto) 14 % (0-10); Hematocrit 49.1 % (41.0-53.0); Hemoglobin 16.3 g/dL (13.5-16.0); Immature Granulocytes % (Auto) 1 % (0-0); Immature Granulocytes Auto 0.03 Thou/mm3 (0.00-0.00); Lymphocytes # (Auto) 1.5 Thou/mm3 (1.0-4.8); Lymphocytes % (Auto) 32 % (10-50); Mean Corpuscular HGB Conc 33.2 g/dl (31.0-37.0); Mean Corpuscular Hemoglobin 30.9 pg (25.0-35.0); Mean Corpuscular Volume 93 fL (80-100); Monocytes # (Auto) 0.6 Thou/mm3 (0.0-0.8); Monocytes % (Auto) 12 % (0-12); Neutrophils % (Auto) 42 % (37-80); Nucleated Red Blood Cell % 0 /100 WBC (0); Platelet Count 243 Thou/mm3 (140-440); RDW Standard Deviation 46.4 fL (35.1-43.9); Red Blood Count 5.28 Miln/mm3 (4.50-5.90); White Blood Count 4.8 Thou/mm3 (3.8-10.6)
[2024-11-06 10:59] LABS: Alanine Aminotransferase 15 U/L (10-49); Albumin, Serum 4.3 gm/dL (3.4-4.8); Albumin/Globulin Ratio 1.7 (1.2-2.2); Alkaline Phosphatase 102 U/L (46-116); Anion Gap 4 (7-16); Aspartate Amino Transferase 18 U/L (0-34); BUN/Creatinine Ratio 14 Ratio (12-20); Blood Urea Nitrogen 15 mg/dL (9-23); Calcium 9.7 mg/dL (8.3-10.6); Calcium (Corrected) 9.7 mg/dL (8.5-10.1); Carbon Dioxide 30.7 mMol/L (20.0-31.0); Cardiac Risk Estimate 3.3 RATIO (4.0-6.7); Chloride 106 mMol/L (98-107); Cholesterol 160 mg/dL (132-200); Creatinine (Component) 1.1 mg/dL (0.6-1.3); Globulin 2.6 gm/dL (2.3-3.5); Glucose 115 mg/dL (74-106); HDL Cholesterol 49 mg/dL (40-60); LDL Cholesterol,Calculated 88 mg/dL (0-130); Osmolality,Calculated 283 (275-295); Potassium 4.5 mMol/L (3.4-5.1); Sodium 141 mMol/L (136-145); Thyroid Stimulating Hormone 0.25 uIU/mL (0.55-4.78); Total Protein 6.9 gm/dL (5.7-8.2); Triglycerides 116 mg/dL (30-150); Uric Acid 7.2 mg/dL (3.7-9.2); eGFR > 60 See Note
[2024-11-06 11:16] LABS: Collection Type, Urine Clean Catch; Squamous Epithelial Cell,Urine 0 /hpf (0-5)
[2024-11-06 11:50] LABS: Bilirubin,Urine Negative (Negative); Blood,Urine Trace (Negative); Clarity,Urine Clear (Clear/Hazy); Color,Urine Yellow (Lt Yel-Yel); Glucose, Urine Negative (Negative); Ketones,Urine Negative (Negative); Leukocyte Esterase,Urine Negative (Negative); Nitrite,Urine Negative (Negative); Protein,Urine Trace (Neg - Trace); RBC,Urine 11 /hpf (0-3); Specific Gravity,Urine 1.019 (1.001-1.035); Urobilinogen,Urine Negative mg/dL (0.0-1.0); WBC,Urine 1 /hpf (0-5)
== END | disposition home or self-care (01) ==
LOC: COPL 09:58
PROVIDERS: PCP Family Medicine; Referring Provider Family Medicine; Visit Provider Family Medicine
DX: Z00.00 Encounter for general adult medical examination without abnormal findings (principal); E78.2 Mixed hyperlipidemia; I10 Essential (primary) hypertension; K20.90 Esophagitis, unspecified without bleeding
CPT/HCPCS: 36415; 80053; 80061; 81001; 84443; 84550; 85025